=== PATIENT | male | born 1980 | race Caucasian/White ===

== ENCOUNTER 2020-11-26 03:00 | Emergency (ER) | payer BC, OTHER ==
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
[2020-11-26] MEDS ORDERED: Bacitracin Oint 1 GM U/D Packet TOP ONE (03:33)
[2020-11-26 03:38] VITALS: BP 142/96; PULSE 77
== END 2020-11-26 03:39 | disposition home or self-care (01) ==
LOC: MW.ED 03:00
DX: S61.411A Laceration without foreign body of right hand, initial encounter (principal); W25.XXXA Contact with sharp glass, initial encounter
CPT/HCPCS: 12001; 99282-25